=== PATIENT | female | born 1965 | race Caucasian/White ===

== ENCOUNTER 2019-01-17 21:57 | Emergency (ER) | payer OTHER ==
[2017-04-22 15:20] VITALS: Wt 82.1 kg
[~2019-01-17 21:57] MED LIST: ACET500T68 PO; BUPR-474 PO; BUPR300T56 PO; CLON0.5T66 PO; CLONIPINE; DOCU-416 PO; Docusate Sodium PO; ESCI20TA38 PO; EST625 PO; HYDR-653 PO; IBUP-56 PO; KET10 PO; LACT10SO62 PO; LACT10SO82 PO; LAMO200T46 PO; LAMO25TA64 PO; LAMOTRIGINE; LEXAPRO; LINA145C PO; LINA290C PO; LIS20 PO; METF-409 PO; NARA1TAB9 PO; NORT10CA PO; OMEP-137 PO; OMEP-218 PO; OXYC-865 PO; PAN20 PO; PANT40TA65 PO; PER PO; PROM-110 PO; SERT-173 PO; VENL75CA58 PO; [UNRECOGNIZED DRUG - OTHER]
[2019-01-17] MEDS ORDERED: LAMO100T52 PO (22:05)
--- NOTE | 2019-01-17 22:05 | ER Report ---
History and Physical Time Seen By MD: 22:02 HPI/ROS CHIEF COMPLAINT: Wasp sting to left foot 3, near-syncope HISTORY OF PRESENT ILLNESS: 53-year-old female stepped on a wasp and was stung 3 times in her left foot. She began to feel syncopal. After that, due to the severe pain. She denies chest pain or shortness of breath. Patient denies throat swelling sensation, hives or itching. REVIEW OF SYSTEMS: Respiratory: No cough, no dyspnea. Cardiovascular: No chest pain, no palpitations. Gastrointestinal: No vomiting, no abdominal pain. Musculoskeletal: No back pain. Allergies: Coded Allergies: No Known Drug Allergies (Verified , 07/22/14) Home Meds Reported Medications Lamotrigine (LAMOTRIGINE) 100 Mg Tablet, 100 MG PO QDAY 01/17/19 Discontinued Reported Medications Ibuprofen (IBUPROFEN) 200 Mg Tablet, 1 TAB PO Q6H PRN for PAIN, TAB 04/14/17 Acetaminophen (TYLENOL EXTRA STRENGTH) 500 Mg Tablet, 500 MG PO PRN, TAB 04/14/17 Sertraline Hcl (ZOLOFT) 100 Mg Tablet, 1 TAB PO QDAY, TAB 04/14/17 Clonazepam (KLONOPIN) 0.5 Mg Tablet, 1.5 MG PO BID, #10 TAB 03/22/17 Lamotrigine (LAMICTAL) 25 Mg Tablet, 100 MG PO BID 03/22/17 Reviewed Nurses Notes: Yes Old Medical Records Reviewed: Yes Hx Smoking: No Smoking Status: Never Smoker Hx Substance Use Disorder: No Hx Alcohol Use: Yes Constitutional Vital Sign - Last 24 Hours 01/17/19 01/17/19 01/17/19 01/17/19 22:01 22:02 22:12 22:27 Temp 98.1 Pulse 74 77 70 Resp 16 B/P (MAP) 146/91 146/91 (109) Pulse Ox 92 91 88 O2 Delivery Room Air 01/17/19 01/17/19 01/17/19 01/17/19 22:30 22:42 22:57 23:00 Pulse 67 68 B/P (MAP) 126/79 (95) 127/79 (95) Pulse Ox 88 88 01/17/19 23:12 Pulse 71 Pulse Ox 92 Physical Exam Vital signs stable, afebrile, pulse ox normal General appearance: Moderate distress Respiratory: Chest is non tender, lungs are clear to auscultation. Cardiac: Regular rate and rhythm Extremity:, Examination of the right foot reveals 3 different sting sites in the forefoot. There is gross edema and erythema. They're tender to palpation. DIFFERENTIAL DIAGNOSIS: After history and physical exam differential diagnosis was considered for insect bite, allergic reaction, Medical Decision Making ED Course/Re-evaluation ED Course She was admitted to an examination room. H&P was done. The differential diagnoses was considered. Patient was treated for pain., Allergic reaction with steroids and Benadryl. She was also given Motrin. Topical lidocaine 4% gel was applied to the affected area. Patient was discharged home with 2 Lortab tablets for pain relief tonight. She is advised to use ibuprofen in the morning. Decision to Disposition Date: Jan 17, 2019 Decision to Disposition Time: 22:47 Depart Departure Latest Vital Signs Vital Signs Date Time Temp Pulse Resp B/P (MAP) Pulse Ox O2 Delivery O2 Flow Rate FiO2 01/17/19 23:12 71 92 01/17/19 23:00 127/79 (95) 01/17/19 22:01 98.1 16 Room Air Impression: Primary Impression: Stings, insect Condition: Improved Disposition: HOME OR SELF-CARE Patient Instructions: Insect Bite or Sting (ED) Additional Instructions: Apply ice packs to the affected area Alternate ibuprofen and Tylenol for pain relief Follow-up with primary care if unimproved in 2-3 days. Problem Qualifiers Primary Impression: Stings, insect Encounter type: initial encounter Injury intent: accidental or unintentional Qualified Codes: T63.481A - Toxic effect of venom of other arthropod, accidental (unintentional), initial encounter RAUL KANG DO Jan 17, 2019 22:05
[2019-01-17] MEDS ORDERED: LIDOCAINE 4% 15 GM TUBE TP ONE (22:10)
[2019-01-17] MEDS ORDERED: diphenhydrAMINE 25 MG CAP PO ONE (22:15)
[2019-01-17] MEDS ORDERED: DEXAMETHASONE 4 MG TAB PO ONE (22:15)
[2019-01-17] MEDS ORDERED: IBUPROFEN 600 MG TAB PO ONE (22:15)
[2019-01-17] MEDS ORDERED: ACETAMINOPHEN 325 MG TAB PO ONE (22:15)
[2019-01-17] MEDS ORDERED: ACET/HYDROC 5/325MG TH ER ONLY 2 TAB/BOTTLE PO ONE (22:45)
[2019-01-17 23:00] VITALS: BP 127/79
== END 2019-01-17 23:16 | disposition home or self-care (01) ==
LOC: ER 22:13
DX: T63.461A Toxic effect of venom of wasps, accidental (unintentional), initial encounter (principal)
CPT/HCPCS: 99283; J8540; Q0163

== ENCOUNTER → 2019-03-06 | Outpatient (CLI) | payer OTHER ==
[2017-04-22 15:20] VITALS: BMI 32.1
[~2019-03-06] MED LIST changes: +LAMO100T52 PO
--- NOTE | 2019-03-06 15:32 | RADIOLOGY IMAGING REPORT ---
FACILITY: [facility] - [place], [place] PATIENT NAME: COSMO ROBISON : [id number] MR: [id number] V: [id number] EXAM DATE: [id number] ORDERING PHYSICIAN: JOHNNIE MOODY TECHNOLOGIST: Yary Lawson PROCEDURE:BILATERAL DIAGNOSTIC DIGITAL MAMMOGRAM WITH CAD ASSISTED INTERPRETATION & 3D TOMOSYNTHESIS REASON FOR STUDY: Retroareolar pain on the Left. Patient also reports asymmetric increase in breast size on the Left. COMPARISON STUDIES: 03/25/08. MAMMOGRAM VIEWS OBTAINED: 2D & 3D full field CC & MLO projections. BREAST DENSITY: The breast parenchyma is predominantly fatty replaced. MAMMOGRAM FINDINGS: There are no mammographic findings concerning for malignancy, there is no discreet focal finding in the retroareolar area on the Left. The Left breast does not have an infiltrative appearance. It appears the Left breast was somewhat larger than the Right on the 2007 comparison, and I'm not certain there has been substantial mammographic change in the appearance. ULTRASOUND AREA SCANNED: Limited Ultrasound of the retroareolar area in the area of pain on the Left breast was done. ULTRASOUND FINDINGS: Sonographic imaging is unremarkable. There is no concerning solid or cystic finding. No architectural distortion or shadowing. DIAGNOSTIC CATEGORY 1--NEGATIVE. RECOMMENDATIONS: ROUTINE MAMMOGRAM AND CLINICAL EVALUATION. IMPRESSION: BIRADS 1: Negative. Clinical correlation with the pain and asymmetry on the Left. In the absence of positive imaging findings management should be based on clinical grounds. Follow up screening mammogram in 1 year. Dictated by: Jaylen Reyez on 03/06/2019 at 11:25 Transcribed by: OBDULIA on 03/06/2019 at 14:39 Approved by: Jaylen Reyez on 03/06/2019 at 15:28 [facility]
== END ==
LOC: MAMO 00:19
PROVIDERS: ATTEND Family Medicine
DX: N64.4 Mastodynia (principal)
CPT/HCPCS: 77062; 77066